=== PATIENT | female | born 1990 | race Caucasian/White ===

== ENCOUNTER → 2023-08-05 10:57 | Outpatient (BNVA) | payer MEDICAID, SELFPAY | PROVIDERS: Family Provider Electrodiagnostic Medicine; Referring Provider Nurse Practitioner Family; Visit Provider Physician Assistant | DX: M77.8 Other enthesopathies, not elsewhere classified (principal); G56.21 Lesion of ulnar nerve, right upper limb; M77.11 Lateral epicondylitis, right elbow | CPT/HCPCS: 73080 ==

== ENCOUNTER 2025-02-17 19:41 | Emergency (ER) | payer MEDICAID, SELFPAY ==
[2025-02-17 19:43] VITALS: BP 161/120; PULSE 106; RESP 16; TEMP 36.8; O2SAT 100; BMI 38.9
--- NOTE | 2025-02-17 19:56 | XRR_ITS ---
PROCEDURE INFORMATION: Exam: XR Abdomen Exam date and time: 02/17/2025 8:59 PM Age: 34 years old Clinical indication: Abdominal pain; Generalized; Prior surgery; Surgery date: 6+ months; Surgery type: Tubal; Diffuse abd pain with diarrhea; Additional info: Abdominal pain, high pitched bowel sounds TECHNIQUE: Imaging protocol: Radiologic exam of the abdomen. Views: Frontal supine view of the abdomen. 1 View. COMPARISON: No relevant prior studies available. FINDINGS: Gastrointestinal tract: Normal. No bowel dilation. Bones/joints: Unremarkable. XR/XR KUB portable [id number] IMPRESSION: No acute findings.
--- NOTE | 2025-02-17 19:58 | ED_ITS ---
HPI - Abdominal Pain 2 General: Chief Complaint: Abdominal Pain Stated Complaint: d/v days. abd pain Time Seen by Provider: 02/17/25 19:45 History of Present Illness: Patient is a 34-year-old female, without medical problems, presents to the emergency room with 2 months of abdominal pain. This has worsened in the last 2 weeks, and she has nausea, vomiting, and diarrhea the last 2 days. She has epigastric and right upper quadrant pain. She does not know she is passing gas. She feels like she has not had a full bowel movement in 2 months. Abdominal surgeries: Tubal ligation Associated Symptoms: Denies chills and fever(s) Related Data Previous Rx's ?Medication ?Instructions ?Recorded azithromycin 500 mg tablet 500 mg PO DAILY 5 days #5 t abs 11/16/24 guaifenesin 1,200 mg tablet, 1,200 mg PO BID 1 week #1 4 tabs 11/16/24 extended release 12 hr (Mucinex) prednisone 20 mg tablet 60 mg (3 x 20 mg) PO DAILY 5 days 11/16/24 #15 tabs ondansetron 4 mg disintegrating 4 mg PO Q8H PRN nausea and 02/17/25 tablet vomiting 4 days #14 tabs Allergies Allergy/AdvReac Type Severity Reaction Status Date / Time No Known Allergies Allergy Verified 02/17/25 19:53 Review of Systems 2 Const: Reports: fatigue and diaphoresis; Denies: fever(s) or chills Eyes: Denies: change in vision ENMT: Denies: change in hearing Card: Denies: chest pain or palpitations Resp: Reports: dyspnea, productive cough, change in phlegm color and chest congestion GI: Denies: abdominal pain Skin/Breast: Denies: rash Neuro: Denies: headache(s) or dizziness Dickson/Lymph: Denies: easy bruising or easy bleeding PFSH ED 2 PFSH: Social History Smoking and tobacco/nicotine status: current every day tobacco/nicotine user cigarettes Alcohol intake: current Alcohol intake frequency: holidays/special occasions only Alcohol type: hard liquor Physical Exam 2 Const: COMMON NORMALS: no acute distress, patient oriented x3 and alert G ENERAL APPEARANCE: cooperative HENMT: COMMON NORMALS: normocephalic, TM's normal bilaterally and Normal external nose present HEAD & SCALP: normocephalic NOSE: Normal external nose present TYMPANIC MEMBRANE: TM's normal bilaterally THROAT: postnasal drainage Eye: GENERAL EYE: appearance normal, both eyes and all related structures Neck/C-Spine: COMMON NORMALS: full ROM Resp: COMMON NORMALS: normal respiratory effort and clear to auscultation bilaterally EFFORT & INSPECTION: Yes able to speak in complete sentences and Yes Actively coughing dry and hacking AUSCULTATION: clear to auscultation bilaterally Cardio: COMMON NORMALS: regular rate and regular rhythm RATE: regular rate RHYTHM: regular rhythm GI: COMMON NORMALS: Soft to palpation and No hepatosplenomegaly present A USCULTATION: Yes Hyperactive bowel sounds present PALPATION: Yes Soft to palpation, Yes Tenderness to palpation present (GI) Details: RUQ, Yes Guarding due to palpation present (GI) in the RUQ, No Rigid due to palpation and Yes No hepatosplenomegaly present : COMMON NORMALS: Yes no CVA tenderness BLADDER/KIDNEY EXAM: Yes no CVA tenderness Back/Pelvis: COMMON NORMALS: no CVA tenderness, thoracic and lumbar spine normal to inspection and no thoracic nor lumbar tenderness Extremity: COMMON NORMALS: full ROM Neuro: COMMON NORMALS: patient oriented x3 SENSORIUM/ORIENTATION: Yes alert SPEECH: speech normal GAIT: Yes Normal gait present Psych: COMMON NORMALS: cooperative ATTITUDE: Yes calm Skin: RASHES: no rashes Course 2 Vital Signs: Vital signs: Vital Signs Temperature 98.2 F 02/17/25 19:43 Pulse Rate 79 02/17/25 21:56 Respiratory Rate 16 02/17/25 19:43 Blood Pressure 154/91 02/17/25 21:56 Pulse Oximetry 98 02/17/25 21:56 Oxygen Delivery Me thod Room Air 02/17/25 20:33 MDM - Abdominal Pain Medical Decision Making Patient is a 34-year-old female that presents to the emergency room due to worsening abdominal pain, nausea, vomiting, diarrhea, and not passing gas. Patient be worked up for SBO, versus cholecystitis pathology. She is a occasional drinker, defined as drinks 2 weeks ago, however minimal. No additional concern was noted on her workup. Abdomen does have a Padron sign. Lipase is negative. Discussed different alternatives with patient, outpatient HIDA scan, and outpatient ultrasonography of right upper quadrant. She will follow-up with her primary care physician. Prince was sent to the pharmacy and explained to the patient. She will stay on a clear liquid diet to control the symptoms. Medical Records I reviewed the patient's medical records. Lab Data 02/17/25 20:25 02/17/25 20:25 Labs/Radiology: Radiology Impressions KUB X-Ray 02/17/25 19:56 IMPRESSION: No acute findings. Laboratory Results WBC 7.15 10^3/uL (3.29-11.43) 02/17/25 20: RBC 4.24 10^6/uL (3.85-5.65) 02/17/25 20: Hgb 12.20 g/dL (11.27-16.99) 02/17/25 20: Hct 36.6 % (36-47) 02/17/25 20: MCV 86.3 fl (85-98) 02/17/25 20: MCH 28.8 pg (27-33) 02/17/25 20: MCHC 33.3 g/dL (30-55) 02/17/25 20: RDW 11.9 % (12.1-15.1) L 02/17/25 20: Plt Count 285 10^3/cmm (157-399) 02/17/25 20: MPV 9.9 fL (7.4-10.4) 02/17/25 20: Neut % (Auto) 42.6 % 02/17/25 20: Lymph % (Auto) 49.1 % 02/17/25 20: Dickens % (Auto) 5.3 % 02/17/25 20: Eos % (Auto) 2.1 % 02/17/25 20: Baso % (Auto) 0.8 % 02/17/25: Neut # (Auto) 3.04 10^3/uL (1.8-7.7) 02/17/25: Lymph # (Auto) 3.5 10^3/uL (0.8-4.8) 02/17/25 20: Dickens # (Auto) 0.4 10^3/uL (0.2-0.9) 02/17/25 20: Eos # (Auto) 0.2 10^3/uL (0.0-0.8) 02/17/25 20:25 Baso # (Auto) 0.1 10^3/uL (0.0-0.1) 02/17/25 20:25 Nucleated RBC % (auto) 0 % 02/17/25 20: Nucleated RBCs # 0.0 /100WBC 02/17/25 20:25 Sodium 138 mmol/L (136-145) 02/17/25 20: Potassium 3.5 mmol/L (3.5-5.1) 02/17/25 20: Chloride 104 mmol/L (98-107) 02/17/25 20: Carbon Dioxide 21 mmol/L (22-29) L 02/17/25 20: Anion Gap 16.5 (5-19) 02/17/25 20: BUN 12 mg/dL (6-20) 02/17/25 20: Creatinine 0.7 mg/dL (0.5-0.9) 02/17/25 20: GFR Calculation 95.2 mL/min (90-130) 02/17/25 20: Glucose 86 mg/dL (65-115) 02/17/25 20: Calculated Osmolality 285 mOsm/kg (285-295) 02/17/25 20: Calcium 9.7 mg/dL (8.5-10.5) 02/17/25 20: Total Bilirubin 0.5 mg/dL (0.15-1.2) 02/17/25 20: AST 21 U/L (0-32) 02/17/25 20: ALT 23 U/L (0-33) 02/17/25 20:25 Alkaline Phosphatase 57 U/L (35-105) 02/17/25 20: Total Protein 7.7 g/dL (6.6-8.7) 02/17/25 20: Albumin 4.7 g/dL (3.5-5.2) 02/17/25 20: Globulin 3.0 g/dL (1.3-4.6) 02/17/25 20: Lipase 32 U/L (13-60) 02/17/25 20:25 HCG, Qual Negative (Negative) 02/17/25 20:40 Urine Color [place] (Yellow) A 02/17/25 20:40 Urine Appearance Clear (CLEAR) 02/17/25 20:40 Urine pH 5.5 (5-7) 02/17/25 20:40 Ur Specific [employer] 1.021 (1.005-1.030) 02/17/25 20:40 Urine Protein Trace (Negative) A 02/17/25 20:40 Urine Glucose (UA) Negative (Normal) 02/17/25 20:40 Urine Ketones Trace (Negative) 02/17/25 20:40 Urine Blood Negative (Negative) 02/17/25 20:40 Urine Nitrate Negative (Negative) 02/17/25 20:40 Urine Bilirubin Negative (Negative) 02/17/25 20:40 Urine Urobilinogen 0.2 mg/dL (Negative) 02/17/25 20:40 Ur Leukocyte Esterase Negative (Negative) 02/17/25 20:40 Urine RBC 0-2 /hpf (0-2) 02/17/25 20:40 Urine WBC 0-5 /hpf (0-5) 02/17/25 20:40 Ur Squamous Epith Cells 0-5 /hpf (0-5) 02/17/25 20:40 Amorphous Sediment Not Reportable 02/17/25 20:40 Urine Bacteria None seen /hpf (NONE) 02/17/25 20:40 Hyaline Casts 0.40 /lpf 02/17/25 20:40 No radiology studies performed this visit Discharge Plan Discharge Patient Disposition: Home Clinical Impression: Gastroenteritis Condition: Stable Prescriptions: New ondansetron 4 mg tablet,disintegrating 4 mg PO Q8H PRN (Reason: nausea and vomiting) 4 Days Qty: 14 0RF No Action guaifenesin [Mucinex] 1,200 mg tablet extended release 12hr 1,200 mg PO BID 7 Days Qty: 14 0RF azithromycin 500 mg tablet 500 mg PO DAILY 5 Days Qty: 5 0RF prednisone 20 mg tablet 60 mg PO DAILY 5 Days Qty: 15 0RF Discharge Orders: Discharge ED (Routine); Ordered 02/17/25 Ordered By: Ofelia Og Discharge Diet: Clear Liquid Discharge Activity: Resume usual activity Patient Instructions: Clear Liquid Diet, Abdominal Pain (ED), Patient Portal & Oziel Instructions Activity Restrictions/Additional Instructions: - At the pharmacy: Zofran. Use as directed for nausea. Side effects include constipation. -Add a probiotic to your daily regimen of vitamins to help with movement of stool through your abdomen naturally. -Clear liquid diet only until symptoms resolved. - Call on Wednesday to have a follow-up appointment with your doctor. There are additional testing that we cannot run down to the ED for your gallbladder. No additional concerns were found on our initial lab work. - Please return to ED if you have ongoing pain, nausea, or vomiting. Thank you for choosing [facility] for your healthcare needs today. You have been screened and evaluated and felt safe for discharge. Health conditions do change or evolve sometimes and as such it is important that you follow up with your Primary Doctor to be re checked, 3-5 days is a general good time frame for follow up. You are always welcome to return to the ED for re assessment if your symptoms are worsening or you have new concerns Print Language: Icelandic Coding Level of Care Code ED Geophysical Support Specialist for Meghann Gibbs
[2025-02-17 20:30] LABS: Hematocrit 36.6 % (36-47); Hemoglobin 12.20 g/dL (11.27-16.99); Mean Corpuscular HGB Conc 33.3 g/dL (30-55); Mean Corpuscular Hemoglobin 28.8 pg (27-33); Mean Corpuscular Volume 86.3 fl (85-98); Nucleated Red Blood Cells % 0 %; Platelet Count 285 10^3/cmm (157-399); Red Blood Count 4.24 10^6/uL (3.85-5.65); White Blood Count 7.15 10^3/uL (3.29-11.43)
[2025-02-17] MEDS: ondansetron 2 mg/ML SDV 2 mL 4 MG IVP (20:31)
[2025-02-17 20:33] VITALS: BP 154/91; PULSE 75; O2SAT 100
[2025-02-17 20:53] LABS: Glucose Urine UA Negative (Normal); Nitrate Urine Negative (Negative); Specific Gravity, Urine 1.021 (1.005-1.030)
[2025-02-17 20:56] LABS: HCG Qualitative Urine. Negative (Negative)
[2025-02-17 20:58] LABS: Add Urine Microscopic? YES
[2025-02-17 21:13] LABS: Alanine Aminotransferase 23 U/L (0-33); Albumin Level 4.7 g/dL (3.5-5.2); Alkaline Phosphatase 57 U/L (35-105); Anion Gap 16.5 (5-19); Aspartate Amino Transferase 21 U/L (0-32); Blood Urea Nitrogen 12 mg/dL (6-20); Calcium 9.7 mg/dL (8.5-10.5); Carbon Dioxide 21 mmol/L (22-29); Chloride 104 mmol/L (98-107); Globulin 3.0 g/dL (1.3-4.6); Glucose 86 mg/dL (65-115); Lipase 32 U/L (13-60); Osmolality Calculated 285 mOsm/kg (285-295); Potassium 3.5 mmol/L (3.5-5.1); Sodium 138 mmol/L (136-145); Total Protein 7.7 g/dL (6.6-8.7)
[2025-02-17 21:26] VITALS: BP 154/91; O2SAT 98
[2025-02-17] MEDS: ondansetron hcl ODT 4 mg Tab PO ×2 (21:49)
[2025-02-17 21:56] VITALS: BP 154/91; PULSE 79; O2SAT 98
== END 2025-02-17 21:58 | disposition home or self-care (01) ==
PROVIDERS: Emergency Provider Physician Assistant
DX: K52.9 Noninfective gastroenteritis and colitis, unspecified (principal); F17.210 Nicotine dependence, cigarettes, uncomplicated
CPT/HCPCS: 74018; 80053; 81001; 81025; 83690; 85025; 96361; 96374; 99284; J2405; J7030; Q0162

== ENCOUNTER → 2025-02-22 11:50 | Outpatient (BNVA) | payer MEDICAID, SELFPAY | DX: Z76.89 Persons encountering health services in other specified circumstances (principal) | CPT/HCPCS: 84443 ==

== ENCOUNTER 2025-02-27 07:21 | Outpatient (CLI) | payer SELFPAY ==
--- NOTE | 2025-02-27 07:30 | US_ITS ---
WS: [id number] RIGHT UPPER QUADRANT ULTRASOUND HISTORY: RUQ pain with eating COMPARISON: 04/26/2015 Liver: 13.2 cm in length. Normal size liver and echogenicity. No bile duct dilatation or mass. Portal Vein: Normal hepatopetal flow with monophasic waveform. Gallbladder: Normally distended gallbladder with no stones or wall thickening. CBD: 0.4 cm Pancreas: Normal size and echogenicity. Right kidney: 10.2 cm in length. Normal size and echogenicity. No hydronephrosis or mass. Aorta and IVC: Unremarkable abdominal aorta and IVC. No ascites. US/US gall bladder 40541 IMPRESSION: Normal right upper quadrant ultrasound.
== END 2025-02-27 07:22 | disposition home or self-care (01) ==
LOC: RAD 07:23
DX: R10.11 Right upper quadrant pain (principal); K82.9 Disease of gallbladder, unspecified
CPT/HCPCS: 76705